=== PATIENT | female | born 1970 | race Caucasian/White ===

== ENCOUNTER 2017-01-02 05:18 | Observation (INO) | payer BC ==
[2016-12-03 12:49] LABS: BASO % 0.3 %; BASO ABS # 0.03 K/uL (0-0.2); COMPLETE YES; EOS % 0.9 %; HEMATOCRIT 41.7 % (37-47); IG% 0.3 %; LYMPH % 28.4 %; LYMPH ABS # 2.93 K/uL (1.2-3.4); MEAN CELL VOLUME 89.3 fL (80-100); MEAN CORPUSCULAR HEMOGLOBIN 29.6 pg (25-34); MEAN CORPUSCULAR HGB CONC 33.1 g/dl (32-36); MONO % 7.6 %; NEUT % 62.5 %; PLATELET COUNT 361 K/uL (130-400); RED BLOOD COUNT 4.67 M/uL (4.2-5.4)
[2016-12-03 12:56] LABS: PREG INTERNAL NEGATIVE QC NEG CLEAR BACKGROUND; PREG INTERNAL POSITIVE QC POS CONTROL LINE
[2016-12-04 09:45] VITALS: BMI 34.0
[2017-01-02] VITALS (8 sets, daily range): BP systolic 113–145; BP diastolic 68–78; PULSE 68–92; TEMP 36.5–37.1; O2SAT 91–99; Ht 162.6 cm; Wt 89.5 kg
[~2017-01-02] VITALS: Ht 162.6 cm; Wt 89.5 kg
[~2017-01-02 05:18] MED LIST: LEVO88TA3 PO
[2017-01-02] MEDS ORDERED: CEFAZOLIN 2000 MG/60 ML D5W 50 ML IV SCH (06:00)
[2017-01-02] MEDS ORDERED: LACTATED RINGER'S 1000ML 1,000 ML IV SCH ×3 (06:00→08:30)
[2017-01-02] MEDS ORDERED: GLYCOPYRROLATE INJ 0.2 MG/ML VIAL ONE ×2 (06:51→06:53)
[2017-01-02] MEDS ORDERED: PROPOFOL IV EMULSION 10 MG/ML 20 ML VIAL IV ONE (06:51)
[2017-01-02] MEDS ORDERED: LIDOCAINE HCL 2% 2 ML VIAL (20MG/ML) ONE (06:51)
[2017-01-02] MEDS ORDERED: DEXAMETHASONE SOD INJ 4 MG/ML VIAL ONE (06:51)
[2017-01-02] MEDS ORDERED: ROCURONIUM BROMIDE 10 MG/ML 5 ML VIAL ONE ×2 (06:51→08:36)
[2017-01-02] MEDS ORDERED: FENTANYL CITRATE INJ 50 MCG/1 ML 2 ML VIAL ONE ×3 (06:51→10:38)
[2017-01-02] MEDS ORDERED: NEOSTIGMINE METHYLSULFATE 5 MG/5 ML SYR ONE (06:51)
[2017-01-02] MEDS ORDERED: ONDANSETRON INJ 2 MG/ML 2 ML VIAL ONE ×2 (06:51→10:27)
[2017-01-02] MEDS ORDERED: MIDAZOLAM HCL 1 MG/ML 2ML VIAL ONE (06:51)
--- NOTE | 2017-01-02 07:02 | History & Physical Bridge Note ---
H&P Re-Evaluation Bridge Note: I have examined the patient, reviewed the History & Physical and in the interval since the performance of the History & Physical I have noted the following changes of clinical significance: No changes noted
[2017-01-02] MEDS ORDERED: SCOPOLAMINE 1.5 MG TDSY TD ONE (07:04)
[2017-01-02] MEDS ORDERED: OXYC-57 PO (07:05)
--- NOTE | 2017-01-02 07:06 | Discharge Instructions ---
Discharge Instructions Date of Service Jan 02, 2017. Visit Reason for Visit: Dysmenorrhea Discharge Discharge Diagnosis / Problem: hysterectomy Discharge Goals Goal(s): Specific goals Activity Recommendations Activity Limitations: per Instructions/Follow-up section Anesthesia . Post Anesthesia Instructions: If you have had General Anesthesia or IV Sedation: * Do not drive today. * Resume driving when surgeon permits. * Do not make important decisions or sign legal documents today. * Call surgeon for: 1. Temperature elevations greater than 101 degrees F. 2. Uncontrollable pain. 3. Excessive bleeding. 4. Persistent nausea and vomiting. 5. Medication intolerance (nausea, vomiting or rash). * For nausea and vomiting use only clear liquids such as: tea, soda, bouillon until nausea subsides, then gradually increase diet as tolerated. * If you have any concerns or questions, call your surgeon's office. If physician is unavailable and it is an emergency, call 911 or go to the nearest emergency room. . Instructions / Follow-Up Instructions / Follow-Up POST OPERATIVE: BOWEL FUNCTION/MEDICATIONS: 1. Constipation pain and discomfort are the most common complaints 5-7 days after surgery. Points 2-6 address the things that can help. 2. Chewing gum can help stimulate the gut and help improve digestion and motility. 3. Milk of Magnesia 1-2 times per day until return of bowel function. 4. Colace is a stool softener that helps. Taking this 2-3 times per day until bowel function returns to normal is highly recommended. 5. Dulcolax is a laxative that may be used if several days have passed without a bowel movement. Alternatively Miralax may be used daily instead. 6. Drink plenty of fluids as this will also reduce constipation. 7. Narcotic pain medications will be prescribed by your physician. They are safe to use and we encourage you to use them. If you are not allergic, ibuprofen will also be prescribed. Many patients will be able to transition off of the narcotic medications to ibuprofen by postoperative day 3. ACTIVITY RECOMMENDATIONS: 1. Get plenty of rest and listen to your body. If you are tired, take a nap. 2. You may shower, but do not take a tub bath until you see your doctor at the 2 week post operative visit. 3. Absolutely NO intercourse and nothing in the vagina until you are examined by your doctor at the 6 week visit. At that visit it will be determined when such activities can be resumed. This can range from 6-12 weeks after your surgery depending on healing time. 4. The main physical activity in the first week should be walking. By the second week you can slowly increase activity. There are no limits on walking up and down stairs. 5. Do not lift more than 5-10 lbs for 4 weeks. Remember the "one-handed rule", i.e. if you can lift something with only one hand it's likely okay. 6. Minimize plastic surgery specialist like vacuuming and exercising for 4 weeks. "Overdoing it" can lead to incisions not healing, pain and vaginal bleeding , so again, listen to your body. 7. Driving can be resumed when you feel able. Do not drive within 24 hours of taking a narcotic medication. EXPECTATIONS: 1. Vaginal spotting, bleeding and discharge are common after surgery. There may even be an odor to the discharge which is often related to sutures used in the vagina. If you experience heavy vaginal bleeding, call the office number day or night [phone]. 2. Bladder discomfort is common after surgery from the catheter. This usually resolves in 1-2 weeks. 3. By the end of the 3rd or 4th week you should be feeling much better. It may take up to 6 weeks for your energy levels to return to normal. 4. Narcotic medications have side effects such as: dizziness, headache, nausea and/or vomiting. If you suspect your pain medication is causing problems, call our office and we may be able to prescribe an alternate medication. 5. The skin incisions are often covered with a liquid bandage. This will gradually peel off over time. CALL THE OFFICE IF YOU HAVE ANY OF THE FOLLOWIN. Temperature of 101 degrees or higher. 2. Severe abdominal or pelvic pain not relieved by pain medication. 3. Persistent nausea or vomiting. 4. Increased pain with urination or difficulty urinating. 5. Bright red bleeding that soaks more than 1 pad per hour. CONTACT PHONE NUMBERS: Main Office: [phone] Surgical Nurse: [phone] extension [phone] FOLLOW-UP: Post-Operative Appointments: * Individual instructions will have been given about the timing of your first examination, but this is usually at the end of the second week home. * You will need to call the office at soon after discharge to make the appointment for your post-op check-up if it has not already been scheduled. * Additional information regarding activity, sexual intercourse and when to return to work will be given at this appointment. WE WISH YOU A SPEEDY RECOVERY! Diet Recommendations Recommended Home Diet: resume previous diet Pending Studies Studies pending at discharge: no Medical Emergencies . Who to Call and When: Medical Emergencies: If at any time you feel your situation is an emergency, please call 911 immediately. . Non-Emergent Contact Non-Emergency issues call your: Primary Care Provider . . "Provider Documentation" section prepared by Leslie Kendall. . [place] Drug Monitoring Program Search Results: patient reviewed within database, no issues identified
[2017-01-02] MEDS ORDERED: PROMETHAZINE HCL INJ 25 MG in SODIUM CHLORIDE 0.9% 50ML 50 ML IV PRN (07:15)
[2017-01-02] MEDS ORDERED: ACETAMINOPHEN 325 MG TAB PO PRN (07:15)
[2017-01-02] MEDS ORDERED: KETOROLAC TROMETHAMINE 30 MG/ML VIAL IV. PRN (07:15)
[2017-01-02] MEDS ORDERED: MEPERIDINE HCL 50 MG/ML CARP IV PRN ×2 (07:15)
[2017-01-02] MEDS ORDERED: OXYCODONE/ACETAMINOPHEN 5-325 TAB PO PRN ×2 (07:15)
[2017-01-02] MEDS ORDERED: IBUPROFEN 600 MG TAB PO PRN (07:15)
[2017-01-02] MEDS ORDERED: PROMETHAZINE HCL INJ 12.5 MG in SODIUM CHLORIDE 0.9% 50ML 50 ML IV PRN (07:15)
[2017-01-02] MEDS ORDERED: SIMETHICONE 80 MG CHEW PO PRN (07:15)
[2017-01-02] MEDS ORDERED: ONDANSETRON INJ 2 MG/ML 2 ML VIAL IV PRN ×2 (07:15→08:00)
[2017-01-02] MEDS ORDERED: METOCLOPRAMIDE HCL INJ 5 MG/ML 2 ML VIAL ONE (07:44)
[2017-01-02] MEDS ORDERED: DiphenhydrAMINE HCL 50 MG/ML VIAL ONE (07:44)
[2017-01-02] MEDS ORDERED: HYDROmorphone INJ 2 MG/ML SYR/VIAL ONE (07:47)
[2017-01-02] MEDS ORDERED: ATROPINE SULFATE 0.1 MG/ML 5ML SYR IV PRN (08:00)
[2017-01-02] MEDS ORDERED: HYDROmorphone INJ 1 MG/ML SYR IV PRN (08:00)
[2017-01-02] MEDS ORDERED: EpHEDrine SULFATE INJ 50 MG/ML AMP IV PRN (08:00)
[2017-01-02] MEDS ORDERED: FENTANYL CITRATE INJ 50 MCG/1 ML 2 ML VIAL IV PRN (08:00)
[2017-01-02] MEDS ORDERED: IV FLUIDS COMPLETED PRN ×2 (08:00→08:15)
[2017-01-02] MEDS ORDERED: FLOSEAL HEMOSTATIC MATRIX 10ML TOP ONE (10:20)
[2017-01-02 11:04] LABS: HEMATOCRIT 39.4 % (37-47)
--- NOTE | 2017-01-02 11:20 | [facility] Post Operative Brief Note ---
Immediate Operative Summary Operative Date Jan 02, 2017. Pre-Operative Diagnosis Menorrhagia;status post endometrial ablation Post-Operative Diagnosis Menorrhagia; status post endometrial ablation; endometresosis stage 4; severe pelvic adhesive disorder Procedure(s) Performed Robotic Assisted Total Laparoscopic Hysterectomy; Right salpingectomy; Left Fimbriectomy; Lysis of adhesions; Cystoscopy Surgeon Dr. Marie Kendall Hypertrichologist Surgeon(s) Dr. Nolan Reyes Estimated Blood Loss 200mL Findings See dictation Specimens A: Uterus & Cervix B: Right Falopian Tube C: Left Fimbria Complication(s) None Disposition Recovery Room / PACU
--- NOTE | 2017-01-02 11:38 | Anesthesiology Progress Note ---
Anesthesia Post Op Note Date & Time Jan 02, 2017 at 11:38 Vital Signs Pain Intensity: 0 Vital Signs Past 12 Hours Date Time Temp Pulse Resp B/P (MAP) Pulse Ox O2 Delivery O2 Flow Rate FiO2 01/02/17 11:35 36.6 78 16 146/71 98 Nasal Cannula 2 01/02/17 11:25 36.6 86 16 145/74 97 Nasal Cannula 2 01/02/17 11:15 93 16 120/72 96 Oxymask 10 01/02/17 11:05 91 16 136/76 96 Oxymask 10 01/02/17 10:57 36.8 105 16 136/78 96 Oxymask 10 01/02/17 05:32 37.1 91 18 134/75 (94) 97 Room Air Notes Mental Status: alert / awake / arousable, participated in evaluation Pt Amnestic to Procedure: Yes Nausea / Vomiting: adequately controlled Pain: adequately controlled Airway Patency, RR, SpO2: stable & adequate BP & HR: stable & adequate Hydration State: stable & adequate Anesthetic Complications: no major complications apparent
--- NOTE | 2017-01-02 13:21 | OPERATIVE REPORT ---
DATE OF OPERATION: 01/02/2017 PREOPERATIVE DIAGNOSES: Menorrhagia and failed endometrial ablation. POSTOPERATIVE DIAGNOSES: Same as well as endometriosis stage IV with severe pelvic adhesive disorder. PROCEDURES: Robotic assisted total laparoscopic hysterectomy, right salpingectomy, left fimbriectomy, lysis of adhesions and cystoscopy. SURGEON: Dr. Leslie Kendall. KNITTED GOODS SHAPER: Amy. ESTIMATED BLOOD LOSS: 200 mL. FINDINGS: The right tube and ovary were densely adherent to one another with an endometrioma or pocket of endometriosis between the right ovary and the pelvic sidewall. The sigmoid colon was densely adherent completely covering the left adnexa as well as the anterior surface of the uterus and the vesicovaginal area. Once this was brought down, significant pockets of endometriosis with chocolate cyst type fluid were revealed behind this piece of colon. The uterus was also densely adherent to the anterior pelvic wall over the bladder dome. The posterior cul-de-sac revealed implants of endometriosis and peritoneal windowing as well as scarring; however, was relatively free of adhesions. SPECIMENS: Include, 1. Uterus and cervix. 2. Right fallopian tube. 3. Left fimbria. COMPLICATIONS: None. DISPOSITION: Stable to the recovery room. DESCRIPTION OF PROCEDURE: Maria A was placed on the table in the dorsal lithotomy position with Yellofin stirrups, prepped and draped in standard sterile fashion and a hard time-out was taken prior to proceeding. Traylor catheter was placed without difficulty for return of clear yellow urine. Weighted and Shafer speculum were introduced to the vagina to allow visualization of the cervix, which was rather fixed and anterior. This was grasped using a single-tooth tenaculum and gentle traction was applied to allow placement of a VCare uterine manipulator, which was done without complication. The uterus, of note, sounded to just shy of 9 cm at the beginning of procedure. Attention was then turned to the abdomen, where an umbilical entry was made through her prior umbilical scar. This was without complication. The abdomen was insufflated, right and left lower quadrant ports were placed without difficulty under direct visualization. A 5-mm camera was introduced through the left lower quadrant port in order to allow visualization of the umbilical entry site to ensure that it was hemostatic and no injury had occurred, which was indeed a short. Once all ports were placed, the patient was in steep Trendelenburg as the robot was docked and surgery began. The initial exploration of the pelvis revealed findings as described above. There were significant pockets of endometriosis and severe adhesive disease, both anteriorly on both pelvic sidewalls involving the adnexa and the bowel ____. DICTATION ENDS HERE. I attest to the content of the Intraoperative Record and any orders documented therein. Any exception s are noted below.
--- NOTE | 2017-01-02 13:38 | OPERATIVE REPORT ---
DATE OF OPERATION: 01/02/2017 ADDENDUM Findings in the pelvis included significant adhesive disease anteriorly on both adnexa and endometriotic implants obvious in the posterior cul-de-sac as well. For this reason, I asked my partner Dr. Reyes to come to the operating room in order to provide assistance. We also made the decision to place a left upper quadrant sourcing assistant port to allow for the introduction of another grasper and a suction carpenter apprentice. Dissection began by freeing the filmy adhesions which were securing the sigmoid colon over top of the left adnexa and the uterus as well as the vesicovaginal pouch. As these were gradually dissected using a combination of sharp dissection and blunt peeling technique, a large amount of Summit syrup type fluid was released from between the colon and the pelvic wall consistent with endometriosis which had been trapped in that area. Suction carpenter apprentice was used to rinse and evacuate this area to allow continued visualization as the bowel was gradually peeled until the left adnexa was visible and the uteroovarian ligament and the round ligament could be identified. At no point did I feel we were at risk of having injured the bowel as primarily it was the epiploica which were involved in the adhesions and these were able to be nicely visualized with the use of suction irrigation. Once the bowel had been freely mobilized, we were able to visualize the ureter coursing and peristalsing along the pelvic sidewall. The left fallopian tube was densely adherent to the left ovary and was not at this time felt to be able to be from the ovary without devitalizing the ovary, therefore it was left in situ for the moment. Dissection began in earnest with the right fallopian tube which was dissected off the mesosalpinx and the course of the right ovary up to the uterine fundus where another pocket of endometriosis with Summit syrup type fluid was encountered, drained and irrigated and suctioned. This fallopian tube was detached and placed in the anterior cul-de-sac for later retrieval. The right uteroovarian ligament was ligated and then divided. The right round ligament was ligated and divided and dissection of the broad ligament allowed visualization of the uterine artery on this side. Of note, the right ureter was able to be identified and was noted to be coursing and peristalsing in its anticipated normal anatomical location well away from the working sites. Further dissection of the peritoneum to create a bladder flap was begun beginning at the right side and coming across the front of the uterus into the area where prior adhesions were encountered. At this point it was felt that the cleanest approach might then be from the posterior aspect as the cul-de-sac was relatively free of adhesive disease. Therefore, the uterus was elevated and a score alexis was made around from the right side to the left side. The right uterine arteries were then ligated and divided. Attention was then returned to the left side. The left cornu was able to be fairly clearly visualized. Therefore, the left fallopian tube and left uteroovarian ligament were ligated and divided at the cornu and from the uterus. The left round ligament was identified, ligated, divided and then the broad ligament was gradually revealed through sharp and blunt dissection of adhesive disease and suction irrigation to evacuate endometriotic implants as they were revealed until we were able to complete the skeletonization of the left uterine artery. This was ligated to the best of our ability, although it was somewhat incomplete at this time due to poor visualization and remaining adhesions. We then returned to the anterior surface of the uterus where we were able to at that point easily visualize where the bladder flap that had been partially created should connect to the left uterine artery and posterior dissection and we were able to safely complete this dissection exposing and then Traylor ligating and dividing the left uterine artery while avoiding injury to the bladder. At this point, colpotomy was able to be completed and the uterus and cervix were delivered through the vagina. The right fallopian tube remained loose in the abdominal cavity at this time. The left fallopian tube remained densely adherent to the left ovary and was not dissected at this time. The V-Loc suture was then used to close the vaginal cuff in a running nonlocked manner as is typical. At the completion of closure, the needle was retrieved through the sourcing assistant port and copious suction irrigation was used to rinse out and clean the abdominal cavity as well as to ensure hemostasis at all working sites. I then had the patient undocked from the robot and placed in reverse Trendelenburg, which allowed us to suction irrigate and remove the vast majority of the remaining fluid in the patient's abdomen in order to enhance patient comfort postoperatively. We were then able also to retrieve the fallopian tube which had previously been detached which will be sent for a pathology examination and the left fallopian tube was then elevated, irrigated and suctioned in order to allow the best possible visualization to see if it could be safely dissected off the left ovary and removed. I did not feel that it was prudent to try and remove the entire left tube as we ran a risk of devitalizing the ovary and additionally because bowel adhesions remained relatively close to this area. Therefore, I excised the left fimbria, which were the most easily accessible portion of the tube and that will be sent for exam but a chunk of the left fallopian tube does remain in situ in the patient's body adherent to the left ovary and remains vitalized and well perfused at this time. After administration of methylene blue dye, the patient then underwent cystoscopy which revealed an exam of the entire bladder cavity showing a noninjured bladder dome. The jets of blue stained urine were seen to appear from each ureteral orifice promptly. Cystoscopy was then brought to completion and attention was turned to closure of the abdomen. The gas was allowed to escape the abdomen. The patient was briefly placed in a left airplane position in order to allow drainage of a small amount of remaining irrigant through the left port site. Once this drainage was completed, the patient was returned to a flat position. All ports were removed. The umbilical and left upper quadrant sourcing assistant port sites were closed using a UR-6 suture at the fascial layer and a 4-0 Monocryl running subcuticular at the skin. The other sites were closed using 4-0 Monocryl at the skin and Dermabond dressing was applied to all 4 sites. The patient was then transferred in stable condition to the recovery room. At my request H&H was sent as the patient was exiting the operating room due to the larger than typical blood loss in this procedure which primarily I feel was endometriosis and Summit syrup type fluid and does not represent intravascular losses; however I feel intravascular losses were difficult to measure due to a significant amount of irrigation and contamination from the endometriosis as well. Therefore this will allowed us to ensure the patient is in good condition if she elects to go home this evening. I attest to the content of the Intraoperative Record and any orders documented therein. Any exception s are noted below.
[2017-01-02 15:08] LABS: HEMATOCRIT 38.2 % (37-47)
[2017-01-02] MEDS ORDERED: DOCUSATE SODIUM 100 MG CAP PO SCH (21:00)
--- NOTE | 2017-01-15 10:04 | Discharge Summary ---
Discharge Summary Date of Service Jan 15, 2017. Discharge Summary Admission Date: Jan 02, 2017 at 07:04 Discharge Date: Jan 02, 2017 Discharge Disposition: Home Principal Diagnosis: Menorrhagia, Endometriosis, Hysterectomy Procedures: Robotic TLH/Salpingectomy/Cysto Medication Reconciliation New Medications: Oxycodone/Acetaminophen 5MG/325MG (Percocet 5MG/325MG) Tab 1 TABLET PO Q4H PRN for Pain, #15 TAB Continued Medications: Levothyroxine Sodium (Levothyroxine Sodium) 88 Mcg Tab 1 TAB PO QAM Hospital Course Uncomplicated hysterectomy, discharge in good condition on POD#0 with routine f/ u. Total Time Spent: Less than 30 minutes This includes examination of the patient, discharge planning, medication reconciliation, and communication with other providers. Discharge Instructions Please refer to the electronic Patient Visit Report (Discharge Instructions) for additional information.
== END 2017-01-02 19:50 | disposition home or self-care (01) ==
LOC: C.ACU 05:18 → C.OBG 07:04 → ENRESERV 11:21
PROVIDERS: ADMIT Obstetrics & Gynecology; ATTEND Obstetrics & Gynecology
DX: N92.0 Excessive and frequent menstruation with regular cycle (principal); N94.6 Dysmenorrhea, unspecified; N80.9 Endometriosis, unspecified; N73.9 Female pelvic inflammatory disease, unspecified; Z98.890 Other specified postprocedural states; E66.9 Obesity, unspecified; Z88.5 Allergy status to narcotic agent; Z81.8 Family history of other mental and behavioral disorders; Z80.3 Family history of malignant neoplasm of breast
CPT/HCPCS: 58571; S2900

== ENCOUNTER → 2017-01-19 | Outpatient (CLI) | payer BC ==
[~2017-01-19] MED LIST changes: +OXYC-57 PO
--- NOTE | 2017-01-21 12:32 | MAMMOGRAPHY REPORT ---
BILATERAL DIGITAL SCREENING MAMMOGRAM TOMOSYNTHESIS WITH CAD: 01/19/2017 CLINICAL HISTORY: Routine screening. Patient has no complaints. TECHNIQUE: Breast tomosynthesis in addition to standard 2D mammography was performed. Current study was also evaluated with a Computer Aided Detection (CAD) system. COMPARISON: Comparison is made to exams dated: 01/17/2016 mammogram, 01/15/2015 mammogram, 01/12/2014 m ammogram, and 01/05/2013 mammogram - [facility]. BREAST COMPOSITION: There are scattered areas of fibroglandular density in both breasts. FINDINGS: The parenchymal pattern is unchanged. No developing mass, architectural distortion or clus ter of suspicious microcalcifications is seen in either breast. IMPRESSION: ACR BI-RADS CATEGORY 2: BENIGN There is no mammographic evidence of malignancy. A 1 year screening mammogram is recommended. The pa tient will receive written notification of the results. Approximately 10% of breast cancers are not detected with mammography. A negative mammographic report should not delay biopsy if a clinically suggestive mass is present. Laura Lee M.D. ay/:01/19/2017 15:59:03 Medical Cost Consultant: Mitra RYAN(Luca)(Shereen)(BD), [facility] letter sent: Normal 1/2 BI-RADS Code: ACR BI-RADS Category 2: Benign
== END | disposition home or self-care (01) ==
LOC: C.MAMM 13:13
PROVIDERS: ATTEND Obstetrics & Gynecology
DX: Z12.31 Encounter for screening mammogram for malignant neoplasm of breast (principal)

== ENCOUNTER → 2018-02-19 | Outpatient (CLI) | payer BC ==
[~2018-02-19] MED LIST changes: -OXYC-57 PO
--- NOTE | 2018-02-19 14:35 | MAMMOGRAPHY REPORT ---
BILATERAL DIGITAL SCREENING MAMMOGRAM TOMOSYNTHESIS WITH CAD: 02/19/2018 CLINICAL HISTORY: Routine screening. Patient has no complaints. TECHNIQUE: The study was acquired using full field digital technology and interpreted from soft copy. Breast tomosynthesis in addition to standard 2D mammography was performed. Current study was also ev aluated with a Computer Aided Detection (CAD) system. COMPARISON: Comparison is made to exams dated: 01/19/2017 mammogram, 01/17/2016 mammogram, 01/15/2015 ma mmogram, 01/12/2014 mammogram, and 01/05/2013 mammogram - [facility]. BREAST COMPOSITION: There are scattered areas of fibroglandular density in both breasts. FINDINGS: No suspicious masses, calcifications, or areas of architectural distortion are noted in either breast . There has been no significant interval change compared to prior exams. IMPRESSION: ACR BI-RADS CATEGORY 1: NEGATIVE There is no mammographic evidence of malignancy. A 1 year screening mammogram is recommended.( [id number]) The patient will receive written notification of the results. Some breast cancers are not detected with mammography. A negative mammographic report should not josep y biopsy if a clinically suggestive mass is present. Kanchan Berumen M.D. ah/:02/19/2018 12:29:15 Medical Affairs Director: RT Rich(R)(M), [facility] letter sent: Normal 1/2 BI-RADS Code: ACR BI-RADS Category 1: Negative
== END | disposition home or self-care (01) ==
LOC: C.MAMM 10:58
PROVIDERS: ATTEND Obstetrics & Gynecology
DX: Z12.31 Encounter for screening mammogram for malignant neoplasm of breast (principal)